=== PATIENT | male | born 1990 | race Caucasian/White ===

== ENCOUNTER → 2020-08-15 | Outpatient (CLI) | payer BC ==
--- NOTE | 2020-08-15 15:59 | RAD ---
INDICATION: Reason: UMBILICAL HERNIA / Spl. Instructions: / History: COMPARISON: None. TECHNIQUE: Axial CT images obtained through the abdomen and pelvis without contrast. One or more of the following individualized dose reduction techniques were utilized for this examination: 1. Automated exposure control; 2. Adjustment of the mA and/or kV according to patient size; 3. Use of iterative reconstruction technique. FINDINGS: 11 mm right lower lung pulmonary nodule. Abdominal aorta is not aneurysmal. Fat-containing left inguinal hernia. No intrahepatic bile duct dilation. Low-density throughout the liver which can be seen with fatty infiltration. The gallbladder is contracted. No peripancreatic fluid collection. The spleen appears enlarged. No hydronephrosis. Urinary bladder is partially distended. No periappendiceal inflammatory changes. No dilated loops of bowel to suggest obstruction. There is a fat-containing umbilical hernia identified. The neck measures approximately 13 mm and the hernia sac measures 38 x 25 mm. Degenerative changes the spine with multilevel central canal and neural foraminal stenosis. There is also prominent epidural fat at L5 extending through sacral region. Fat-containing left greater than right inguinal hernia. There is some fragmentation of the superior lateral aspect of the acetabulum bilaterally with degenerative changes at the bilateral hips which is more than typically seen for the patient's age IMPRESSION: * Fat-containing umbilical hernia is identified. * Right lower lung nodule measuring up to 11 mm. * Fatty infiltration of the liver. 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 Fleischner Society recommendations for solitary solid lung nodule follow up.: In a low risk patient: <6mm - No follow up required. 6-8mm - 6-[address], then CT at 18-24 months. >8mm - CT at 3 months, PET/CT or tissue sampling. In a high risk patient (history of smoking or other known risk factors): <6mm - Follow up CT at 12 months. 6-8mm - 6-[address], then CT at 18-24 months. >8mm - CT at 3 months, PET/CT or tissue sampling. Fleischner Society recommendations for multiple solid lung nodule follow up.: In a low risk patient: <6mm - No follow up required. 6-8mm - 3-[address], then CT at 18-24 months. >8mm - CT at 3-6 months, then at 18-24 months. PET/CT or tissue sampling based on most suspicious nodule. In a high risk patient (history of smoking or other known risk factors): <6mm - Follow up CT at 12 months. 6-8mm - 3-[address], then CT at 18-24 months. >8mm - CT at 3-6 months, PET/CT or tissue sampling option based on most suspicious nodule. Electronically signed by: Adonis Otero MD (08/15/2020 3:57 PM) [id number]
== END | disposition home or self-care (01) ==
LOC: CT 15:26
PROVIDERS: ATTEND Family Medicine
DX: K42.9 Umbilical hernia without obstruction or gangrene (principal); R91.1 Solitary pulmonary nodule; K40.90 Unilateral inguinal hernia, without obstruction or gangrene, not specified as recurrent; N32.89 Other specified disorders of bladder; R16.1 Splenomegaly, not elsewhere classified; M47.819 Spondylosis without myelopathy or radiculopathy, site unspecified; M16.0 Bilateral primary osteoarthritis of hip
CPT/HCPCS: 74176